=== PATIENT | female | born 1995 | race Caucasian/White ===

== ENCOUNTER 2016-09-04 21:28 | Emergency (ER) | payer MEDICAID ==
[~2016-09-04] VITALS: Ht 162.6 cm; Wt 62.6 kg
--- NOTE | 2016-09-04 21:35 | NUR ---
PT TAKEN TO BED 7
[2016-09-04 21:42] VITALS: BP 114/76
--- NOTE | 2016-09-04 21:45 | NUR ---
20 Y/O F W/C/O PELVIC AND LOWER BACK PAIN X 1 WK, AND DISCOMFORT WITH URINATION. DENIES FEVER OR CHILLS. VSS, NO S/S OF DISTRESS NOTED AT THE MOMENT.
--- NOTE | 2016-09-04 21:59 | NUR ---
Dr. Yeh evaluating patient at bedside.
[2016-09-04 22:20] VITALS: BP 108/69
--- NOTE | 2016-09-04 22:20 | NUR ---
Patient discharged with v/s stable. Written and verbal after care instructions given and explained. Patient alert, oriented and verbalized understanding of instructions. Ambulatory with steady gait. All questions addressed prior to discharge. ID band removed. Patient advised to follow up with PMD THIS WK OR RETURN TO ER IF CONDITION WORSENS. Rx of CEPHALEXIN given. Patient educated on indication of medication including possible reaction and side effects. Opportunity to ask questions provided and answered.
== END 2016-09-04 22:20 | disposition home or self-care (01) ==
LOC: MED 21:28
DX: N12 Tubulo-interstitial nephritis, not specified as acute or chronic (principal)
CPT/HCPCS: 81002; 81025; 99283

== ENCOUNTER 2016-12-01 19:00 | Emergency (ER) | payer MEDICAID ==
[~2016-12-01] VITALS: Ht 162.6 cm; Wt 65.8 kg
[2016-12-01 19:27] VITALS: BP 109/65
--- NOTE | 2016-12-01 19:30 | NUR ---
PATIENT PRESENTS TO ED WITH C/O SUDDENLY NAUSEA, DIZZINESS, BODYACHES, LIGTHEADED SINCE THIS MORNING, PT STATES NO MEDICAL HISTORY, NOT TAKING CONTROL MEDS FOR ONE MONTH. SKIN IS PINK/WARM/DRY; AAOX4 WITH EVEN AND STEADY GAIT; LUNGS CLEAR BL; HR EVEN AND REGULAR; PT DENIES ANY FEVER, CP, SOB, OR COUGH AT THIS TIME; PATIENT STATES PAIN OF 0/10 AT THIS TIME; VSS; PATIENT POSITIONED FOR COMFORT; HOB ELEVATED; BEDRAILS UP X2; BED DOWN. ER MD MADE AWARE OF PT STATUS.
--- NOTE | 2016-12-01 19:34 | NUR ---
Patient ambulated to bed 06.
--- NOTE | 2016-12-01 20:30 | NUR ---
Dr. Campo evaluating patient at bedside.
[2016-12-01] MEDS ORDERED: MECLIZINE 25 MG TAB PO ONE (20:45)
[2016-12-01 21:11] LABS: APPEARANCE,URINE HAZY (CLEAR); BILIRUBIN,URINE NEGATIVE (NEGATIVE); BLOOD, URINE NEGATIVE (NEGATIVE); COLOR,URINE YELLOW (YELLOW); LEUKOCYTE ESTERASE ,URINE 1+ (NEGATIVE); NITRITE, URINE NEGATIVE (NEGATIVE); UGLUCOSE NEGATIVE (NEGATIVE)
--- NOTE | 2016-12-01 21:15 | NUR ---
Patient being taken to CT via wheelchair per tech.
[2016-12-01 21:18] LABS: HEMATOCRIT 41.8 % (36-48); HEMOGLOBIN 13.8 g/dL (12.0-16.0); MEAN CORPUSCULAR HEMOGLOBIN 28 pg (27-31); MEAN CORPUSCULAR HGB CONC 33 g/dL (33-37); MEAN CORPUSCULAR VOLUME 85 fL (80-94); PLATELET COUNT (AUTO) 240 K/uL (140-450); RED CELL DISTRIBUTION WIDTH 12.1 % (11.6-13.7); WHITE BLOOD COUNT (AUTO) 7.4 K/uL (4.8-10.8)
[2016-12-01 21:20] LABS: ALBUMIN 4.2 g/dL (3.4-5.0); ANION GAP 9.5 (8-16); CARBON DIOXIDE 28.8 mmol/L (21-32); CREATININE 0.7 mg/dL (0.6-1.3); POTASSIUM 3.3 mmol/L (3.5-5.1); TOTAL BILIRUBIN 0.5 mg/dL (0.0-1.0)
[2016-12-01 21:20] LABS: RBC,URINE 0-5 (RARE) /HPF (0-5); WBC,URINE 6-15 (FEW) /HPF (0-5)
[2016-12-01 21:43] LABS: BASOPHILS % (MANUAL) 0 % (0-2); EOSINOPHILS % (MANUAL) 2 % (0-4); LYMPHOCYTES % (MANUAL) 30 % (20-46); MONOCYTES % (MANUAL) 7 % (5-12)
[2016-12-01] MEDS ORDERED: POTASSIUM CHLORIDE 10 MEQ TABER PO ONE (21:50)
[2016-12-01 22:15] VITALS: BP 109/65
--- NOTE | 2016-12-01 22:15 | NUR ---
Patient discharged with v/s stable. Written and verbal after care instructions given and explained. Patient alert, oriented and verbalized understanding of instructions. Ambulatory with to car. All questions addressed prior to discharge. ID band removed. Patient advised to follow up with PMD. Rx of NITROFURANTOIN AND MECLIZINE HYDROCHLORIDE given. Patient educated on indication of medication including possible reaction and side effects. Opportunity to ask questions provided and answered.
== END 2016-12-01 22:15 | disposition home or self-care (01) ==
LOC: MED 19:00
DX: E87.6 Hypokalemia (principal); N39.0 Urinary tract infection, site not specified; R42 Dizziness and giddiness; F11.10 Opioid abuse, uncomplicated
CPT/HCPCS: 36415; 70450; 80053; 81001; 81025; 84484; 85025; 87086; 99285; J8597

== ENCOUNTER 2019-02-07 08:54 | Emergency (ER) | payer MEDICAID, OTHER ==
[~2019-02-07] VITALS: Ht 162.6 cm; Wt 61.7 kg
[2019-02-07 08:59] VITALS: BP 129/73
--- NOTE | 2019-02-07 09:05 | NUR ---
Patient ambulated to bed 1. RN evaluating patient at bedside.
--- NOTE | 2019-02-07 09:09 | NUR ---
23 Y/O F C/O VAGINAL DISCOMFORT X4 DAYS. PT STATES THAT SHE EXPERIENCES PAIN WITH INTERCOURSE, BELIEVES IT IS A SMALL CUT OR CYST. PT DENIES N/V/F AND NO DISCHARGE. PT HAS HAD THIS HAPPEN IN THE PAST, STATES SHE IS PRONE TO FISSURES. PT PUT INTO GOWN, POSITIONED FOR EXAM, BED LOWERED, X1 SIDE RAIL IN PLACE. NKA MED HX: NONE
--- NOTE | 2019-02-07 09:18 | NUR ---
PT AMBULATED TO RESTROOM TO GIVE UA WITHOUT DIFFICULTY.
--- NOTE | 2019-02-07 09:23 | NUR ---
Dr. Saucedo is evaluating the patient at bedside.
--- NOTE | 2019-02-07 09:25 | NUR ---
DR RAM AT BEDSIDE EXAMINING PATIENT.
[2019-02-07 10:07] VITALS: BP 129/73
--- NOTE | 2019-02-07 10:08 | NUR ---
Patient discharged with v/s stable. Written and verbal after care instructions given and explained. Patient alert, oriented and verbalized understanding of instructions. Ambulatory with steady gait. All questions addressed prior to discharge. ID band removed. Patient advised to follow up with PMD. Rx of VALACYCLOVIR HYDROCHLORIDE 1 GM TABLET given. Patient educated on indication of medication including possible reaction and side effects. Opportunity to ask questions provided and answered.
== END 2019-02-07 10:08 | disposition home or self-care (01) ==
LOC: MED 08:54
DX: A60.04 Herpesviral vulvovaginitis (principal); Z91.09 Other allergy status, other than to drugs and biological substances
CPT/HCPCS: 81002; 81025; 99283

== ENCOUNTER 2019-04-11 01:02 | Emergency (ER) | payer OTHER ==
[~2019-04-11] VITALS: Ht 162.6 cm; Wt 59.0 kg
[2019-04-11 01:05] VITALS: BP 115/73
--- NOTE | 2019-04-11 01:14 | NUR ---
PT TAKEN TO BED 11
--- NOTE | 2019-04-11 01:18 | NUR ---
Dr. Wade examining patient.
[2019-04-11 01:30] VITALS: BP 115/73
--- NOTE | 2019-04-11 01:56 | NUR ---
Patient discharged with v/s stable. Written and verbal after care instructions given and explained. Patient alert, oriented and verbalized understanding of instructions. Ambulatory with steady gait. All questions addressed prior to discharge. ID band removed. Patient advised to follow up with PMD. Rx of MOTRIN AND PREDNISONE given. Patient educated on indication of medication including possible reaction and side effects. Opportunity to ask questions provided and answered.
== END 2019-04-11 01:56 | disposition home or self-care (01) ==
LOC: MED 01:02
DX: J02.8 Acute pharyngitis due to other specified organisms (principal); B97.89 Other viral agents as the cause of diseases classified elsewhere; F12.90 Cannabis use, unspecified, uncomplicated
CPT/HCPCS: 99283

== ENCOUNTER 2019-05-14 12:40 | Emergency (ER) | payer OTHER ==
[~2019-05-14] VITALS: Ht 162.6 cm; Wt 62.6 kg
[2019-05-14 12:42] VITALS: BP 116/71
--- NOTE | 2019-05-14 12:52 | NUR ---
23/F BIB SELF C/O PAIN & SWOLLEN TONSILS X 2 DAYS. PATIENT STATES PAIN OF 9/10 AT THIS TIME. PATIENT POSITIONED FOR COMFORT; HOB ELEVATED; BEDRAILS UP X1; BED DOWN. ER MD MADE AWARE OF PT STATUS.
--- NOTE | 2019-05-14 12:55 | NUR ---
Patient being evaluated by Dr. Yeh at bedside.
[2019-05-14 13:55] VITALS: BP 116/71
== END 2019-05-14 13:56 | disposition home or self-care (01) ==
LOC: MED 12:40
DX: J03.90 Acute tonsillitis, unspecified (principal); F17.200 Nicotine dependence, unspecified, uncomplicated; F12.90 Cannabis use, unspecified, uncomplicated
CPT/HCPCS: 87081; 99283

== ENCOUNTER 2021-12-08 14:10 | Emergency (ER) | payer OTHER ==
[~2021-12-08] VITALS: Ht 162.6 cm; Wt 61.2 kg
[2021-12-08 14:25] VITALS: BP 126/88
--- NOTE | 2021-12-08 15:01 | NUR ---
PT AMB TO BED
[2021-12-08] MEDS ORDERED: ONDANSETRON 4 MG ODT PO ONE (15:15)
--- NOTE | 2021-12-08 15:23 | NUR ---
LAB AT BEDSIDE
--- NOTE | 2021-12-08 15:25 | NUR ---
26YO FEMALE PT C/O NAUSEA , CRAMPING LOWER ABDOMEN PAIN AND VAGINAL BLEEDING X3DAYS. NOTES DARK RED "SPOTTING" AND WHITE DISCHARGE. UPON ARRIVAL PT HAD + URINE , AO . DENIES CHEST PAIN , V/D, SOB, FEVER OR CHILLS. PT AAOX4, RESPIRATIONS EVEN AND UNLABORED. HOB POSITIONED PER COMFORT. HX: DENIES NKA
[2021-12-08 15:33] LABS: BASOPHILS # (AUTO) 0.1 K/uL (0.00-0.22); EOSINOPHILS # (AUTO) 0.2 K/uL (0-0.4); EOSINOPHILS % (AUTO) 1.8 % (0.0-4.0); HEMATOCRIT 37.2 % (36-48); HEMOGLOBIN 12.8 g/dL (12.0-16.0); LYMPHOCYTES # (AUTO) 2.8 K/uL (2.5-16.5); LYMPHOCYTES % (AUTO) 29.3 % (20.5-51.1); MEAN CORPUSCULAR HEMOGLOBIN 29 pg (27-31); MEAN CORPUSCULAR HGB CONC 34 g/dL (33-37); MEAN CORPUSCULAR VOLUME 84.3 fL (80-94); MONOCYTES # (AUTO) 0.7 K/uL (0.8-1.0); MONOCYTES % (AUTO) 7.3 % (1.7-9.3); NEUTROPHILS # (AUTO) 5.7 K/uL (1.8-7.7); NEUTROPHILS % (AUTO) 60.6 % (42.2-75.2); PLATELET COUNT (AUTO) 334 K/uL (140-450); RED BLOOD CELL COUNT(AUTO) 4.41 MIL/uL (4.20-5.40); RED CELL DISTRIBUTION WIDTH 13.4 % (11.6-13.7); WHITE BLOOD COUNT (AUTO) 9.4 K/uL (4.8-10.8)
[2021-12-08 16:02] LABS: ALBUMIN 3.6 g/dL (3.4-5.0); ANION GAP 13.3 (8-16); CARBON DIOXIDE 25.1 mmol/L (21-32); CREATININE 0.6 mg/dL (0.6-1.3); POTASSIUM 3.4 mmol/L (3.5-5.1); TOTAL BILIRUBIN 0.9 mg/dL (0.0-1.0)
--- NOTE | 2021-12-08 16:34 | NUR ---
pt at rest w/ eyes closed. respirations even and unlabored. bed at lowest position, bed rails up x2.
[2021-12-08 16:47] VITALS: BP 123/68
--- NOTE | 2021-12-08 16:58 | NUR ---
US AT BEDSIDE
[2021-12-08] MEDS ORDERED: DOXY1TCP PO (18:03)
[2021-12-08] MEDS ORDERED: CEPH-588 PO (18:03)
--- NOTE | 2021-12-08 18:11 | NUR ---
Patient discharged with v/s stable. Written and verbal after care FOR VAGINAL BLEEDING DURING PREG, THREATENED MISSCARRIAGE AND /UTI instructions given and explained. Patient alert, oriented and verbalized understanding of instructions. Ambulatory with steady gait. All questions addressed prior to discharge. ID band removed. Patient advised to follow up with PMD. Rx of KEFLEX AND DOXYLAMINE/PYRIDOXINE HCL given. Opportunity to ask questions provided and answered.
--- NOTE | 2021-12-08 18:15 | NUR ---
The patient's care was reviewed and supervised by [facility] ED, RN.
== END 2021-12-08 18:11 | disposition home or self-care (01) ==
LOC: MED 14:10
DX: O20.0 Threatened abortion (principal); O23.41 Unspecified infection of urinary tract in pregnancy, first trimester; N39.0 Urinary tract infection, site not specified; Z3A.01 Less than 8 weeks gestation of pregnancy
CPT/HCPCS: 36415; 76801; 80053; 81002; 81025; 83690; 84702; 85025; 86901; 87210; 99284; Q0092; Q0162

== ENCOUNTER 2023-05-07 03:42 | Emergency (ER) | payer OTHER ==
[~2023-05-07] VITALS: Ht 162.6 cm; Wt 59.0 kg
[~2023-05-07 03:42] MED LIST: CEPH-588 PO; DOXY1TCP PO
[2023-05-07 03:49] VITALS: BP 120/85; PULSE 81; RESP 18; TEMP 97.7; O2SAT 100
[2023-05-07] MEDS ORDERED: TETRACAINE HCL/PF 0.5% OPTH 4 ML BTL ONE (05:01)
[2023-05-07] MEDS: TETRACAINE HCL/PF 0.5% OPTH 4 ML BTL OP ONE (05:16)
[2023-05-07] MEDS ORDERED: OFLOS LEFT EYE (05:19)
[2023-05-07 05:22] VITALS: BP 120/85; PULSE 81; RESP 18; TEMP 97.7; O2SAT 100
== END 2023-05-07 05:22 | disposition home or self-care (01) ==
LOC: MED 03:42
DX: S05.02XA Injury of conjunctiva and corneal abrasion without foreign body, left eye, initial encounter (principal); Z79.899 Other long term (current) drug therapy; X58.XXXA Exposure to other specified factors, initial encounter; Y92.89 Other specified places as the place of occurrence of the external cause; Y93.89 Activity, other specified; Y99.8 Other external cause status
CPT/HCPCS: 99283

== ENCOUNTER 2023-06-20 16:29 | Emergency (ER) | payer OTHER ==
[~2023-06-20] VITALS: Ht 162.6 cm; Wt 59.0 kg
[~2023-06-20 16:29] MED LIST changes: +OFLOS LEFT EYE
[2023-06-20 16:38] VITALS: BP 114/77; PULSE 113; RESP 18; TEMP 100.1; O2SAT 99
[2023-06-20 17:47] VITALS: O2SAT 99
[2023-06-20 17:54] LABS: APPEARANCE,URINE CLEAR (CLEAR); BILIRUBIN,URINE NEGATIVE (NEGATIVE); BLOOD, URINE NEGATIVE (NEGATIVE); COLOR,URINE YELLOW (YELLOW); LEUKOCYTE ESTERASE ,URINE NEGATIVE (NEGATIVE); NITRITE, URINE NEGATIVE (NEGATIVE); PH,URINE 6.5 (5.0-9.0); PROTEIN,URINE NEGATIVE (NEGATIVE); UGLUCOSE NEGATIVE (NEGATIVE); UROBILINOGEN,URINE 0.2 EU/dL (0.2 - 1)
[2023-06-20] MEDS ORDERED: CEPH-588 PO (18:56)
[2023-06-20] MEDS ORDERED: CETI10TA81 PO (18:56)
[2023-06-20 19:01] VITALS: TEMP 98.6
[2023-06-21] MEDS ORDERED: DOXY-690 PO (14:33)
== END 2023-06-20 19:01 | disposition home or self-care (01) ==
LOC: MED 16:29
DX: L03.314 Cellulitis of groin (principal); J06.9 Acute upper respiratory infection, unspecified; Z79.899 Other long term (current) drug therapy
CPT/HCPCS: 81003; 81025; 87491; 99284